=== PATIENT | female | born 1945 | race Caucasian/White ===

== ENCOUNTER 2019-06-18 19:17 | Emergency (ER) | payer MEDICARE, OTHER ==
[2019-06-18 19:33] VITALS: TEMP 97.9
[2019-06-18] MEDS ORDERED: IPRATROPIUM-ALBUTEROL 3 ML NEB INHALATION STA (20:17)
[2019-06-18 20:38] LABS: Basophils # (A) 0.1 k/uL (0-0.2); Basophils % (A) 1 %; Eosinophils # (A) 0.4 k/uL (0-0.7); Eosinophils % (A) 4 %; HCT 38.8 % (34.0-46.0); HGB 12.6 gm/dL (11.4-16.0); Lymphocytes # (A) 1.4 k/uL (1.0-4.8); Lymphocytes % (A) 14 %; MCH 28.1 pg (25.0-35.0); MCHC 32.4 g/dL (31.0-37.0); MCV 86.8 fL (80.0-100.0); Mean Platelet Volume 8.1; Monocytes # (A) 0.6 k/uL (0-1.0); Monocytes % (A) 6 %; Neutrophils # (A) 7.1 k/uL (1.3-7.7); Neutrophils % (A) 73 %; Platelet Count 191 k/uL (150-450); RBC 4.47 m/uL (3.80-5.40); RDW 14.5 % (11.5-15.5); WBC 9.8 k/uL (3.8-10.6)
[2019-06-18 20:49] LABS: Calcium 9.5 mg/dL (8.4-10.2); Potassium 4.2 mmol/L (3.5-5.1); Total Bilirubin 0.4 mg/dL (0.2-1.3); Total Protein 7.1 g/dL (6.3-8.2)
--- NOTE | 2019-06-18 21:04 | XR ---
EXAMINATION TYPE: XR chest 2V DATE OF EXAM: 06/18/2019 COMPARISON: NONE HISTORY: Short of breath TECHNIQUE: Frontal and lateral views of the chest are obtained. FINDINGS: Heart and mediastinum are normal. Lungs are clear of consolidation. There are no hilar mas ses. There is right central venous catheter with the tip in the superior vena cava. There are chest l jluien. IMPRESSION: No active cardiopulmonary disease.
[2019-06-18] MEDS ORDERED: LEVOFLOXACIN 750 MG TAB PO STA (22:22)
--- NOTE | 2019-06-18 22:24 | ED ---
URI HPI - General Chief Complaint: Upper Respiratory Infection Stated Complaint: DOMINIQUE Time Seen by Provider: 06/18/19 19:43 Source: patient Mode of arrival: wheelchair Limitations: physical limitation - History of Present Illness Initial Comments: The patient is a 74-year-old female presents to the emergency department with reported productive cough and shortness of breath over the past several days. She does report a history of asthma. States that she developed an upper respiratory infection which has been exacerbating her asthma. She has had pro duction of yellow sputum. She reports a fever of 99 yesterday. States her asthma has been acting up on her however she denies difficulty breathing. No chest pain. Admits to green nasal drainage. She has had a scratchy sore throat. Denies any ear pain. No neck pain or stiffness. Denies any headaches. Denies any abdominal pain or changes in her bowel or bladder habits. She has been using her inhalers as directed. There are no other alleviating, precipitating or modifying factors - Related Data Home Medications Medication Instructions Recorded Confirmed Albuterol Sulfate [Proair Hfa] 1 - 2 puff INHALATION RT-Q6H PRN 06/18/19 06/18/19 Beclomethasone Dipropionate 2 spray EA NOSTRIL BID 06/18/19 06/18/19 [Beconase Aq] Cetirizine HCl [Zyrtec] 10 mg PO BID 06/18/19 06/18/19 Clopidogrel [Plavix] 75 mg PO DAILY 06/18/19 06/18/19 Docusate [Colace] 100 mg PO BID 06/18/19 06/18/19 Fluticasone Propionate [Flovent 2 puff INHALATION RT-BID 06/18/19 06/18/19 Hfa 110 mcg] Indapamide [Lozol] 2.5 mg PO DAILY 06/18/19 06/18/19 Insulin Glargine [Lantus] 50 - 70 unit SQ HS 06/18/19 06/18/19 Levothyroxine Sodium [Synthroid] 50 mcg PO DAILY 06/18/19 06/18/19 Losartan Potassium 50 mg PO DAILY 06/18/19 06/18/19 Methocarbamol [Robaxin-750] 750 mg PO BID 06/18/19 06/18/19 Multivitamins, Thera [Multivitamin 1 tab PO DAILY 06/18/19 06/18/19 (formulary)] Nadolol 80 mg PO BID 06/18/19 06/18/19 Pantoprazole Sodium [Protonix] 40 mg PO DAILY 06/18/19 06/18/19 Potassium Chloride ER [K-Dur 10] 10 meq PO DAILY 06/18/19 06/18/19 Ranitidine HCl [Zantac] 150 mg PO HS 06/18/19 06/18/19 Salmeterol Xinafoate [Serevent 1 puff INHALATION RT-BID 06/18/19 06/18/19 Diskus] Sennosides [Senna] 8.6 mg PO HS 06/18/19 06/18/19 Vit C/E/Zn/Coppr/Lutein/Zeaxan 1 cap PO BID 06/18/19 06/18/19 [Preservision Areds 2 Softgel] Zafirlukast [Accolate] 20 mg PO BID 06/18/19 06/18/19 metFORMIN HCL [Glucophage Xr] 500 mg PO DAILY 06/18/19 06/18/19 traMADol HCL [Ultram] 50 mg PO Q6H PRN 06/18/19 06/18/19 Previous Rx's Medication Instructions Recorded Levofloxacin [Levaquin] 750 mg PO DAILY 5 Days #5 tab 06/18/19 Allergies Allergy/AdvReac Type Severity Reaction Status Date / Time acetaminophen [From Vicodin] Allergy Dyspnea Verified 06/18/19 20:51 codeine Allergy Rash/Hives Verified 06/18/19 20:51 hydrocodone [From Vicodin] Allergy Dyspnea Verified 06/18/19 20:51 latex Allergy blisters Verified 06/18/19 20:51 nickel Allergy Swelling Verified 06/18/19 20:51 nitrofurantoin Allergy Rash/Hives Verified 06/18/19 20:51 [From Macrodantin] Sulfa (Sulfonamide Allergy Rash/Hives Verified 06/18/19 20:51 Antibiotics) aspirin AdvReac Abdominal Verified 06/18/19 20:51 Pain budesonide [From Symbicort] AdvReac immune Verified 06/18/19 20:51 depression citalopram [From Celexa] AdvReac Dyspnea Verified 06/18/19 20:51 clarithromycin [From Biaxin] AdvReac Nausea & Verified 06/18/19 20:51 Vomiting formoterol [From Symbicort] AdvReac immune Verified 06/18/19 20:51 depression ibuprofen AdvReac Swelling Verified 06/18/19 20:51 povidone-iodine AdvReac burning Verified 06/18/19 20:51 [From Betadine] soap [From Betadine] AdvReac burning Verified 06/18/19 20:51 ammonium lactate cream AdvReac Rash/Hives Uncoded 06/18/19 19:36 sharpie AdvReac Rash/Hives Uncoded 06/18/19 19:36 Review of Systems ROS Statement: Those systems with pertinent positive or pertinent negative responses have been documented in the HPI. ROS Other: All systems not noted in ROS Statement are negative. Past Medical History Past Medical History: Asthma, Cancer, Heart Failure, Diabetes Mellitus, Hyperlipidemia, Hypertension, Pneumonia, Thyroid Disorder Additional Past Medical History / Comment(s): breast cancer (chemo and radiation, 2011), History of Any Multi-Drug Resistant Organisms: MRSA Date of last positivie culture/infection: 2012 MDRO Source:: nares Past Surgical History: Joint Replacement, Orthopedic Surgery, Tonsillectomy Additional Past Surgical History / Comment(s): mastectomy, bilat knee replacement, D&C, Past Psychological History: No Psychological Hx Reported Smoking Status: Former smoker Past Alcohol Use History: None Reported Past Drug Use History: None Reported General Exam Limitations: physical limitation General appearance: alert, in no apparent distress Head exam: Present: atraumatic, normocephalic, normal inspection Eye exam: Present: normal appearance, PERRL, EOMI. Absent: scleral icterus, conjunctival injection, periorbital swelling ENT exam: Present: normal exam, mucous membranes moist, other (clear nasal drainage. Tenderness to palpation of the maxillary sinuses) Neck exam: Present: normal inspection. Absent: tenderness, meningismus, lymphadenopathy Respiratory exam: Present: normal lung sounds bilaterally, other (bronchospasm). Absent: respiratory distress, wheezes, rales, rhonchi, stridor Cardiovascular Exam: Present: regular rate, normal rhythm, normal heart sounds. Absent: systolic murmur, diastolic murmur, rubs, gallop, clicks GI/Abdominal exam: Present: soft, normal bowel sounds. Absent: distended, tenderness, guarding, rebound, rigid Extremities exam: Present: normal inspection, full ROM, normal capillary refill. Absent: tenderness, pedal edema, joint swelling, calf tenderness Back exam: Present: normal inspection Neurological exam: Present: alert, oriented X3, CN II-XII intact Psychiatric exam: Present: normal affect, normal mood Skin exam: Present: warm, dry, intact, normal color. Absent: rash Course Vital Signs 06/18/19 06/18/19 06/18/19 19:26 20:31 20:42 Temperature 97.9 F Pulse Rate 78 76 72 Respiratory 19 Rate Blood Pressure 160/80 O2 Sat by Pulse 94 L Oximetry 06/18/19 22:35 Temperature Pulse Rate 71 Respiratory 18 Rate Blood Pressure 149/63 O2 Sat by Pulse 99 Oximetry Medical Decision Making - Medical Decision Making Upon arrival the patient is placed into room 22. She is hooked up to continuous pulse ox and cardiac monitoring. The patient's pulse ox is mildly low at 94%. I did recommend a 12-lead EKG which demonstrates normal sinus rhythm. The patient was provided with a DuoNeb breathing treatment. I did recommend basic blood work as well as a chest x-ray. Upon return of the results they're discussed the patient. I did recommend treatment as the patient does clinically presents with a acute sinusitis and pneumonia. The patient did agree to this. She was provided with a dose of Levaquin in the ER. I will send her home with a prescription for 5 days of Levaquin. I did offer treatment with prednisone ho wever the patient is a diabetic. She states that she normally does not take steroids as a cause a lot of pills side effects. The patient is to follow-up with her primary care physician. If she has any new or worsening symptoms she should return to the emergency room. She is to continue using her inhalers as directed. The patient was in agreement with this plan and she was discharged home in stable condition - Lab Data Result diagrams: 06/18/19 20:31 06/18/19 20:31 Lab Results 06/18/19 06/18/19 Range/Units 20:31 20:31 WBC 9.8 (3.8-10.6) k/uL RBC 4.47 (3.80-5.40) m/uL Hgb 12.6 (11.4-16.0) gm/dL Hct 38.8 (34.0-46.0) % MCV 86.8 (80.0-100.0) fL MCH 28.1 (25.0-35.0) pg MCHC 32.4 (31.0-37.0) g/dL RDW 14.5 (11.5-15.5) % Plt Count 191 (150-450) k/uL Neutrophils % 73 % Lymphocytes % 14 % Monocytes % 6 % Eosinophils % 4 % Basophils % 1 % Neutrophils # 7.1 (1.3-7.7) k/uL Lymphocytes # 1.4 (1.0-4.8) k/uL Monocytes # 0.6 (0-1.0) k/uL Eosinophils # 0.4 (0-0.7) k/uL Basophils # 0.1 (0-0.2) k/uL Sodium 137 (137-145) mmol/L Potassium 4.2 (3.5-5.1) mmol/L Chloride 99 (98-107) mmol/L Carbon Dioxide 28 (22-30) mmol/L Anion Gap 10 mmol/L BUN 26 H (7-17) mg/dL Creatinine 0.80 (0.52-1.04) mg/dL Est GFR (CKD-EPI)AfAm 85 (>60 ml/min/1.73 sqM) Est GFR (CKD-EPI)NonAf 74 (>60 ml/min/1.73 sqM) Glucose 225 H (74-99) mg/dL Calcium 9.5 (8.4-10.2) mg/dL Total Bilirubin 0.4 (0.2-1.3) mg/dL AST 21 (14-36) U/L ALT 19 (9-52) U/L Alkaline Phosphatase 94 (38-126) U/L Total Protein 7.1 (6.3-8.2) g/dL Albumin 4.0 (3.5-5.0) g/dL - EKG Data EKG Comments: EKG demonstrates normal sinus rhythm with a ventricular rate of 71. LA interval 158. QRS 94. QTC of 454. No acute ST segment elevation or depression Disposition Clinical Impression: Cough Disposition: HOME SELF-CARE Condition: Stable Instructions (If sedation given, give patient instructions): Upper Respiratory Infection (ED) Additional Instructions: Please follow-up with your primary care physician in 2-4 days. Return to the emergency department for any new or worsening symptoms. Use your inhalers as directed at home. Prescriptions: Levofloxacin [Levaquin] 750 mg PO DAILY 5 Days #5 tab Is patient prescribed a controlled substance at d/c from ED?: No Referrals: Nonstaff,Physician [Primary Care Provider] - 1-2 days Time of Disposition: 22:23
[2019-06-18 22:36] VITALS: BP 149/63; PULSE 71; RESP 18
== END 2019-06-18 23:07 | disposition home or self-care (01) ==
LOC: EC 19:17
DX: J45.909 Unspecified asthma, uncomplicated (principal); J18.9 Pneumonia, unspecified organism; J01.90 Acute sinusitis, unspecified; I11.0 Hypertensive heart disease with heart failure; I50.9 Heart failure, unspecified; E11.9 Type 2 diabetes mellitus without complications; E07.9 Disorder of thyroid, unspecified; Z87.891 Personal history of nicotine dependence; Z88.1 Allergy status to other antibiotic agents; Z88.2 Allergy status to sulfonamides; Z88.5 Allergy status to narcotic agent; Z88.6 Allergy status to analgesic agent; Z88.8 Allergy status to other drugs, medicaments and biological substances; Z91.040 Latex allergy status; Z91.048 Other nonmedicinal substance allergy status; Z79.4 Long term (current) use of insulin; Z79.02 Long term (current) use of antithrombotics/antiplatelets; Z79.51 Long term (current) use of inhaled steroids; Z79.890 Hormone replacement therapy; Z79.899 Other long term (current) drug therapy; Z86.14 Personal history of Methicillin resistant Staphylococcus aureus infection; Z85.3 Personal history of malignant neoplasm of breast; Z90.10 Acquired absence of unspecified breast and nipple; Z92.21 Personal history of antineoplastic chemotherapy; Z92.3 Personal history of irradiation; Z90.89 Acquired absence of other organs; Z96.653 Presence of artificial knee joint, bilateral
CPT/HCPCS: 36415; 71046; 80053; 85025; 93005; 94640; 99285